=== PATIENT | female | born 1990 | race African-American/Black ===

== ENCOUNTER 2023-04-08 11:25 | Emergency (ER) | payer SELFPAY ==
--- NOTE | 2023-04-08 11:31 | ED.ABDPAIN ---
HPI - Abdominal Pain General Chief Complaint: Abdominal Pain Stated Complaint: abdominal pain Time Seen by Provider: 04/08/23 11:31 Source: patient Mode of arrival: ambulatory Limitations: no limitations History of Present Illness HPI narrative: patient is a 32-year-old female who presents with severe pelvic pain after having sex 2 hours ago 08/12 and tearful. Patient states it hurts to sit down. Denies any vaginal bleeding. Has not taken anything for symptoms. Describes pain as severe menstrual cramps. denies any nausea, vomiting, diarrhea. No concern for STDs, has not been to a primary or Gyne in a while. Related Data Home Medications Medication Instructions Recorded Confirmed No Home Medications 04/08/23 04/08/23 Allergies Allergy/AdvReac Type Severity Reaction Status Date / Time No Known Allergies Allergy Verified 04/08/23 11:44 Review of Systems Review of Systems: All systems reviewed & are unremarkable except as noted in HPI and below Constitutional: Constitutional: Denies body ache(s), Denies chills, Denies fatigue, Denies fever(s), Denies headache(s), Denies malaise and Denies weakness Eyes: Eyes: Denies blurry vision, Denies irritation and Denies loss of vision ENT: Denies otalgia, Denies headache(s), Denies nasal discharge, Denies sinus pain and Denies sore throat Cardiovascular: Cardiovascular: Denies chest pain, Denies irregular heart rhythm and Denies dyspnea Respiratory: Respiratory: Denies dyspnea Gastrointestinal: Gastrointestinal: Reports abdominal pain, Denies melena, Denies hematochezia, Reports GI cramping, Denies diarrhea, Denies nausea and Denies vomiting Musculoskeletal: Musculoskeletal: Denies back pain, Denies myalgias and Denies arthralgias Integumentary/Breasts: Skin/Breast: Denies pruritus and Denies rash Neurologic: Denies headache(s), Denies loss of vision and Denies weakness Psychiatric: Psychiatric: Reports no additional psychiatric complaints Endocrine: Endocrine: Denies fatigue PMFSH Comments At time of signature, agree with nursing past medical, surgical, social and family history. There is no relevant family history pertinent to the presenting complaint. Exam Const: General: cooperative, healthy appearing, comfortable, no acute distress and well nourished Nutritional Appearance: well nourished Orientation/consciousness: patient oriented x3 Limitations: no limitations HENMT: Head: normal to inspection, normocephalic and atraumatic Ears: hearing grossly normal bilaterally and external ears normal Face/Nose/Sinus: Normal external nose present, normal facial exam and face symmetric Face and sinus: normal facial exam and face symmetric Mouth: Yes lip normal Eyes: General: appearance normal, both eyes and all related structures Alignment and Position: alignment normal and position normal Periorbital: periorbital findings normal Eyelids: eyelids normal Pupils: Equal, round and reactive pupils present EOM: EOMs intact bilaterally Neck: Neck: normal visual inspection, full ROM and supple Chest: Chest palpation & inspection: normal inspection of the chest Resp: Effort & Inspection: normal respiratory effort and able to speak in complete sentences Auscultation: clear to auscultation bilaterally Cardio: Rate: regular rate Rhythm: regular rhythm Heart sounds: S1 normal heart sound present and S2 normal heart sound present GI: Inspection: normal to inspection GI Palp: Yes abdominal tenderness (pelvis), Yes Soft to palpation and No Guarding due to palpation present (GI) Auscultation: normal bowel sounds Rectal Exam: deferred : General: Yes bladder normal to palpation and Yes no CVA tenderness Speculum Exam - Vagina: normal appearance of the vagina, normal palpation, normal vaginal discharge, no foreign bodies, no lacerations, No vaginal bleeding and nontender Speculum Exam - Cervix: normal appearance of the cervix, normal palpation and Cervical os closed Skin:
[2023-04-08 11:40] VITALS: BP 134/102; PULSE 91; RESP 18; TEMP 36.4; O2SAT 100
== END 2023-04-08 12:33 | disposition home or self-care (01) ==
PROVIDERS: Emergency Provider Nurse Practitioner Family
DX: R10.2 Pelvic and perineal pain (principal)
CPT/HCPCS: 99214; G0463

== ENCOUNTER 2023-04-13 08:35 | Emergency (ER) | payer SELFPAY ==
--- NOTE | 2023-04-13 08:55 | ED.SKABFB ---
HPI - Skin/Abscess/Foreign Bdy General Chief complaint: Skin/Abscess/Foreign Body Stated complaint: Insect Bite Time Seen by Provider: 04/13/23 08:45 Source: patient Mode of arrival: ambulatory Limitations: no limitations History of Present Illness HPI narrative: Jennifer is a 32-year-old female patient presenting to clinic today with complaints of an insect bite to her left posterior thigh x1 day. She reports that it swelled up the size of a golf ball yesterday. She does not know what insect had bit her. States that the area itches very much Related Data Allergies Allergy/AdvReac Type Severity Reaction Status Date / Time No Known Allergies Allergy Verified 04/08/23 11:44 Review of Systems Review of Systems: Pertinent positives per HPI. Patient denies any fever, chills, rash, headache, visual changes, dizziness, cough, runny nose, sore throat, shortness of breath, chest pain, palpitations, nausea, vomiting, diarrhea, constipation, abdominal pain, or any urinary issues. PMFSH Comments At the time of my signature, I reviewed and agree with the nursing past medical, surgical, social, and family history. There is no relevant family history pertinent to the patient complaint. Exam Narrative: General: Well-developed, well nourished, in no apparent distress Head: Normocephalic, atraumatic. Cardio: Regular rate and rhythm, s1 and s2 normal, no murmur appreciated. Resp: Clear to auscultation bilaterally, no rhonchi, rales, wheezing or rubs. Integumentary: [place], warm, and dry, red, raised, itchy, nonfluctuant, indurated, noninfected insect bite to the left posterior thigh measuring 2.5 x 2 cm, no drainage noted Course Course Emergency Course: Portions of this record may have been created with voice recognition software. Level of Care: Express Care Visit Vital Signs Vital signs: Vital signs reviewed MDM - Skin/Abscess/Foreign Bdy MDM Narrative Medical decision making narrative: At the time of visit patient is resting comfortably on the exam table. I suspect the patient has a allergic reaction to an insect bite. Will place patient on some triamcinolone cream supportive measures were discussed with the patient she voiced understanding discharge instructions and agrees to treatment plan. Differential Diagnosis Differential diagnosis: Likely abscess of skin or subcutaneous tissue, cellulitis, eczema, insect bites, impetigo and contact dermatitis Discharge Plan Discharge Clinical Impression: Insect bite Patient Disposition: Home, Self-Care Condition: Stable Instructions: Antibiotic Form, Insect Bite or Sting (ED), General Allergic Reaction (ED) Additional Instructions: Apply triamcinolone cream as directed May take Benadryl 25-50 mg every 6 hours as needed for itching Avoid scratching Watch for signs and symptoms of infection-increase in swelling, increasing redness, increasing pain, purulent discharge, or streaking Prescriptions: New triamcinolone acetonide 0.1 % cream 1 applic topical BID 7 Days Qty: 30 0RF Follow-up/Referrals: PHYSICIAN,HORTICULTURE WORKER [Primary Care Provider] - Time of Disposition: 08:58 Quality NIHSS Nursing Documentation ED NIHSS nursing documentation: reviewed/agree
[2023-04-13 09:22] VITALS: BP 144/90; PULSE 74; RESP 16; TEMP 37.1; O2SAT 100
== END 2023-04-13 09:00 | disposition home or self-care (01) ==
PROVIDERS: Emergency Provider Nurse Practitioner Family
DX: S70.362A Insect bite (nonvenomous), left thigh, initial encounter (principal); W57.XXXA Bitten or stung by nonvenomous insect and other nonvenomous arthropods, initial encounter
CPT/HCPCS: 99213; G0463